=== PATIENT | female | born 1990 | race Caucasian/White ===

== ENCOUNTER 2016-08-01 18:28 | Emergency (ER) | payer OTHER ==
--- NOTE | 2016-08-01 19:30 | ED NURSING NOTES ---
Clinical Report - Nurses [facility] [address] [place] [address] 08/01/2016 18:29 Patient: HILDA MARTINEZ TRIAGE Triage time 18:38 Aug 01 2016. Acuity: LEVEL 3. Chief Complaint: BACK PAIN. MEAGHAN COMA SCORE: Meaghan Coma Scale: 15- eyes open spontaneously (4); best verbal response- oriented x 4 (5); best motor response- obeys commands (6). --18:55 Dang Guthrie R.N. 18:38 08/01/16. BP: 109/69. HR: 100. RR: 18. O2 saturation: 100%. Temp: 98.7 F. Pain level now 7/10. --18:55 Dang Guthrie R.N. Weight: 65.7 kg stated. Height/Length: 64 inches Per Patient. BMI: 24.9. --18:53 Dang Guthrie R.N. Medications None. --18:49 Dang Guthrie R.N. Allergies Sulfa Antibiotics. --18:49 Dang Guthrie R.N. History Arrived by private vehicle. Historian: patient. Accompanied by friend. Onset. (2 weeks). No history of recent trauma. ( Patient very vague with area of pain midback unable to palpate to create pain.). No numbness, weakness, tingling, trouble walking or fever. No extremity pain. 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 PAST MEDICAL HX: No history of diabetes mellitus, hypertension, heart disease or lung disease. Tetanus status: up-to-date. Last normal menstrual period- 8 months ago. 2. Para 2. Abortions 0. Sexual history - sexually active. No contraception. SOCIAL HX: Current every day light tobacco smoker (cigarette)- less than 1/2 a pack per day. Occasional alcohol use. History of drug use: marijuana. SELF HARM ASSESSMENT: A self harm assessment was performed. The patient answered "no" to the question "Have you recently felt down, depressed, or hopeless?" and "Do you have thoughts of harming or killing yourself?". FALL RISK ASSESSMENT: Fall risk assessment completed. No fall risk identified. NUTRITIONAL RISK ASSESSMENT: The nutritional risk assessment revealed no deficiencies. FUNCTIONAL ASSESSMENT: Functional assessment: no impairments noted. LEARNING NEEDS ASSESSMENT: The learning needs assessment revealed no barriers. ABUSE ASSESSMENT: Abuse assessment: (yes) The patient was asked "Do you feel safe in your home?". SKIN INTEGRITY ASSESSMENT: Skin integrity risk assessment completed. No skin integrity risk identified. --18:55 Dang Guthrie R.N. ( Patient said she has been having muscle spasms all over, migraines, and swelling of the face and extremities.). --18:56 Dang Guthrie R.N. PROBLEMS: Kidney infection . Menorrhagia. Fibromyalgia. --18:50 Dang Guthrie R.N. ADDITIONAL SURGERIES: no known surgeries. Interventions ID band on patient. --18:55 Dang Guthrie R.N. PHYSICAL ASSESSMENT Ambulatory to room. GENERAL / NEURO / PSYCH: Alert. Oriented X 4. Appears in no acute distress. RESPIRATORY: Respirations not labored. Chest nontender. Breath sounds within normal limits. CVS: Normal heart rate and rhythm. Capillary refill less than 2 seconds. GI / : Abdomen soft and nontender. Bowel sounds within normal limits. ( Last BM today). EXTREMITIES: Sensation intact in extremities. ROM of extremities within normal limits. BACK: Normal inspection of the neck and back. No neck or back tenderness. ROM of neck and back within normal limits. --18:56 Dang Guthrie R.N. NURSING PROGRESS NOTES The initial plan of care for this patient includes an assessment with efforts to address the patient's anxiety; patient positioning and appropriate ambient lighting; impairment of the neurological and musculoskeletal system. Head of bed elevated (45). Reassurance given. Call light placed in reach. Side rails up x 1. Bed placed in lowest position. Brakes of bed on. --18:57 Dang Guthrie R.N. 18:56 08/01/16. BP: 105/68. HR: 93. RR: 18. O2 saturation: 99%. --18:57 Dang Guthrie R.N. DISPOSITION / DISCHARGE Departure time: 1958. Condition at departure: improved. No learning barriers present. Discharge instructions provided and reviewed with the patient. Reviewed warnings. Reviewed medication(s). Treatments reviewed. Reviewed referrals. Activity restrictions reviewed. Patient and radial drill press set up operator verbalized understanding. Written instructions provided in Filipino. The patient was discharged by the physician histology assistant. She was discharged home and accompanied by radial drill press set up operator. She left the Emergency Department ambulatory and via private vehicle. Assurance Associate driving. FALL RISK ASSESSMENT: Fall risk assessment completed. No fall risk identified. --20:01 Alejandro Overton R.N. 19:59 08/01/16. BP: 108/68. HR: 88. RR: 18. O2 saturation: 98%. Temp: 98 F. Pain level now 0/10. --20:01 Alejandro Overton R.N. Locked/Released at 08/01/2016 20:01 by Alejandro Overton R.N.
--- NOTE | 2016-08-01 19:30 | ED NURSING NOTES ---
Clinical Report - Nurses [facility] [address] [place] [address] 08/01/2016 18:29 Patient: HILDA MARTINEZ TRIAGE Triage time 18:38 Aug 01 2016. Acuity: LEVEL 3. Chief Complaint: BACK PAIN. MEAGHAN COMA SCORE: Meaghan Coma Scale: 15- eyes open spontaneously (4); best verbal response- oriented x 4 (5); best motor response- obeys commands (6). --18:55 Dang Guthrie R.N. 18:38 08/01/16. BP: 109/69. HR: 100. RR: 18. O2 saturation: 100%. Temp: 98.7 F. Pain level now 7/10. --18:55 Dang Guthrie R.N. Weight: 65.7 kg stated. Height/Length: 64 inches Per Patient. BMI: 24.9. --18:53 Dang Guthrie R.N. Medications None. --18:49 Dang Guthrie R.N. Allergies Sulfa Antibiotics. --18:49 Dang Guthrie R.N. History Arrived by private vehicle. Historian: patient. Accompanied by friend. Onset. (2 weeks). No history of recent trauma. ( Patient very vague with area of pain midback unable to palpate to create pain.). No numbness, weakness, tingling, trouble walking or fever. No extremity pain. 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 PAST MEDICAL HX: No history of diabetes mellitus, hypertension, heart disease or lung disease. Tetanus status: up-to-date. Last normal menstrual period- 8 months ago. 2. Para 2. Abortions 0. Sexual history - sexually active. No contraception. SOCIAL HX: Current every day light tobacco smoker (cigarette)- less than 1/2 a pack per day. Occasional alcohol use. History of drug use: marijuana. SELF HARM ASSESSMENT: A self harm assessment was performed. The patient answered "no" to the question "Have you recently felt down, depressed, or hopeless?" and "Do you have thoughts of harming or killing yourself?". FALL RISK ASSESSMENT: Fall risk assessment completed. No fall risk identified. NUTRITIONAL RISK ASSESSMENT: The nutritional risk assessment revealed no deficiencies. FUNCTIONAL ASSESSMENT: Functional assessment: no impairments noted. LEARNING NEEDS ASSESSMENT: The learning needs assessment revealed no barriers. ABUSE ASSESSMENT: Abuse assessment: (yes) The patient was asked "Do you feel safe in your home?". SKIN INTEGRITY ASSESSMENT: Skin integrity risk assessment completed. No skin integrity risk identified. --18:55 Dang Guthrie R.N. ( Patient said she has been having muscle spasms all over, migraines, and swelling of the face and extremities.). --18:56 Dang Guthrie R.N. PROBLEMS: Kidney infection . Menorrhagia. Fibromyalgia. --18:50 Dang Guthrie R.N. ADDITIONAL SURGERIES: no known surgeries. Interventions ID band on patient. --18:55 Dang Guthrie R.N. PHYSICAL ASSESSMENT Ambulatory to room. GENERAL / NEURO / PSYCH: Alert. Oriented X 4. Appears in no acute distress. RESPIRATORY: Respirations not labored. Chest nontender. Breath sounds within normal limits. CVS: Normal heart rate and rhythm. Capillary refill less than 2 seconds. GI / : Abdomen soft and nontender. Bowel sounds within normal limits. ( Last BM today). EXTREMITIES: Sensation intact in extremities. ROM of extremities within normal limits. BACK: Normal inspection of the neck and back. No neck or back tenderness. ROM of neck and back within normal limits. --18:56 Dang Guthrie R.N. NURSING PROGRESS NOTES The initial plan of care for this patient includes an assessment with efforts to address the patient's anxiety; patient positioning and appropriate ambient lighting; impairment of the neurological and musculoskeletal system. Head of bed elevated (45). Reassurance given. Call light placed in reach. Side rails up x 1. Bed placed in lowest position. Brakes of bed on. --18:57 Dang Guthrie R.N. 18:56 08/01/16. BP: 105/68. HR: 93. RR: 18. O2 saturation: 99%. --18:57 Dang Guthrie R.N. DISPOSITION / DISCHARGE Departure time: 1958. Condition at departure: improved. No learning barriers present. Discharge instructions provided and reviewed with the patient. Reviewed warnings. Reviewed medication(s). Treatments reviewed. Reviewed referrals. Activity restrictions reviewed. Patient and automation lead verbalized understanding. Written instructions provided in Bruneian. The patient was discharged by the physician bindery library technical assistant. She was discharged home and accompanied by automation lead. She left the Emergency Department ambulatory and via private vehicle. Coremaker Supervisor driving. FALL RISK ASSESSMENT: Fall risk assessment completed. No fall risk identified. --20:01 Alejandro Overton R.N. 19:59 08/01/16. BP: 108/68. HR: 88. RR: 18. O2 saturation: 98%. Temp: 98 F. Pain level now 0/10. --20:01 Alejandro Overton R.N. Locked/Released at 08/01/2016 20:01 by Alejandro Overton R.N.
--- NOTE | 2016-08-01 19:30 | ED ORDER SUMMARY ---
..... Patient: HILDA MARTINEZ OrderSheet [facility] VisitID: [id number] [address] [place] [address] 25y, F Registration Date/Time: 08/01/2016 ORDER SHEET Weight: 65.7 kg (stated) Allergies: Sulfa Antibiotics GENERAL ORDERS: UA-Culture if indicated Urgent (18:49 08/01/2016 HBivens A.R.N.P.) (Ack 18:52 Amol) (19:07 Malathi R.N.) Urine Urgent (18:49 08/01/2016 HBivens A.R.N.P.) (Ack 18:52 RKleda) (19:07 Malathi R.N.) MEDICATION ORDERS: IV FLUIDS: ORDER SHEET NOTES: [Electronically signed by Alejandro Overton R.N. (20:01 08/01/2016)] [Electronically signed by Natividad ChaudhariR.N.P. (20:49 08/01/2016)] [Electronically locked/signed by Alejandro Overton R.N. (20:01 08/01/2016)]
--- NOTE | 2016-08-01 19:30 | ED ORDER SUMMARY ---
..... Patient: HILDA MARTINEZ OrderSheet [facility] VisitID: [id number] [address] [place] [address] 25y, F Registration Date/Time: 08/01/2016 ORDER SHEET Weight: 65.7 kg (stated) Allergies: Sulfa Antibiotics GENERAL ORDERS: UA-Culture if indicated Urgent (18:49 08/01/2016 HBivens A.R.N.P.) (Ack 18:52 Amol) (19:07 Malathi R.N.) Urine Urgent (18:49 08/01/2016 HBivens A.R.N.P.) (Ack 18:52 RKleda) (19:07 Malathi R.N.) MEDICATION ORDERS: IV FLUIDS: ORDER SHEET NOTES: [Electronically signed by Alejandro Overton R.N. (20:01 08/01/2016)] [Electronically signed by Natividad ChaudhariR.N.P. (20:49 08/01/2016)] [Electronically locked/signed by Alejandro Overton R.N. (20:01 08/01/2016)]
--- NOTE | 2016-08-01 19:30 | ED CLINICAL REPORT ---
Clinical Report - Physicians/Mid Levels [facility] [address] [address] 08/01/2016 18:29 Patient: HILDA MARTINEZ Time Seen: 1838; upon arrival, initial patient contact, initial documentation, patient care assumed. Arrived- By private vehicle. Historian- patient. HISTORY OF PRESENT ILLNESS Chief Complaint: BACK PAIN and CHRONIC BACK PAIN. It is still present. Modifying factors. Not worsened by anything. Not relieved by anything. It is described as being moderate in degree and in the area of the lower thoracic spine and upper lumbar spine. The quality is noted to be burning, "pain" and similar to prior episodes. No radiation. No bladder dysfunction, bowel dysfunction, sensory loss or motor loss. Additional history - back pain since she had her epidural years ago. Patient denies an injury but injury to the head or neck. No other injury. Similar symptoms previously: Occasionally, as bad. Recent medical care: Not recently seen/assessed. REVIEW OF SYSTEMS No fever, difficulty with urination, urinary frequency, hematuria or vaginal discharge. No difficulty breathing, chest pain, abdominal pain, vomiting or diarrhea. All systems otherwise negative, except as recorded above. PAST HISTORY See nurses notes. PROBLEMS: Kidney infection . Menorrhagia. Fibromyalgia. --18:50 Dang Guthrie, RHeather. ADDITIONAL SURGERIES: no known surgeries. SOCIAL HISTORY Light tobacco smoker. Occasional alcohol use. History of occasional drug use: marijuana. No recent travel. Is a local resident. FAMILY HISTORY Negative. ADDITIONAL NOTES The nursing notes have been reviewed with agreement regarding the chief complaint, HPI, ROS, PMH and patient medications and allergies. PHYSICAL EXAM Vital Signs: 08/01/2016 18:38 BP: 109/69. HR: 100. RR: 18. O2 saturation: 100%. Temp: 98.7 F. Have been reviewed as normal and appear to be correct. Appearance: Alert. No acute distress. Neck: Normal inspection. Neck nontender. Painless ROM. CVS: Heart sounds normal. Pulses normal. Respiratory: No respiratory distress. Breath sounds normal. Abdomen: No visible injury. Soft and nontender. Back: Normal inspection. No tenderness. Painless ROM. Skin: Skin warm and dry. Normal skin color. No rash. Normal skin turgor. Extremities: Extremities exhibit normal ROM. Extremities nontender. Neuro: Oriented X 3. Mood/affect normal. No motor deficit. No sensory deficit. LABS, X-RAYS, AND EKG Laboratory Tests: UA-Culture if indicated: (KATHLEEN: 08/01/2016 16:40) ( [facility] [place]/01[place] 19:09) Final results Test Result Flag Units (Reference) URINE COLOR STRAW URINE APPEARANCE CLEAR URINE GLUCOSE NEGATIVE (NEGATIVE) URINE BILIRUBIN NEGATIVE (NEGATIVE) URINE KETONE NEGATIVE (NEGATIVE) URINE SPECIFIC GRAVITY <= 1.005 L (1.010-1.030) URINE PH 5.5 (5.0-8.0) URINE PROTEIN NEGATIVE (NEGATIVE) URINE UROBILINOGEN 0.2 EU/dL (0.2-1.0) URINE NITRITE NEGATIVE (NEGATIVE) URINE BLOOD 1+ (NEGATIVE) URINE LEUK ESTERASE NEGATIVE (NEGATIVE) URINE RBC 0-1 rbc/hpf (0-1) URINE WBC NONE SEEN wbc/hpf (0-1) URINE EPITHELIAL CELLS 0-1 EPI/hpf (0-5) URINE BACTERIA NONE SEEN (NONE SEEN) URINE COMMENT CULT NOT INDICATED URINE CULTURES ARE SET-UP BASED ON THE FOLLOWING CRITERIA:POSITIVE NITRITEPOSITIVE LEUKOCYTE ESTERASEGREATER THAN 10 WHITE BLOOD CELLSMODERATE (2+) OR GREATER BACTERIA Urine: (KATHLEEN: 08/01/2016 16:40) ( [facility] 08/01/2016 18:58) Final results Test Result Flag Units (Reference) URINE NEGATIVE . PROGRESS AND PROCEDURES Patient counseled in person regarding the patient's stable condition, test results and diagnosis. 19:30. Differential Diagnosis: I considered Musculo-skeletal strain, contusion, transverse-process fracture, osteoarthritis and pyelonephritis as a possible cause of back pain in this patient. This is a partial list of diagnoses considered. (uti, kidney stone). Above considerations are based on history, physical exam and laboratory data. Differential diagnosis was discussed with patient. Disposition: Discharged home in good and unchanged condition (19:30). Condition: good and stable. CLINICAL IMPRESSION Chronic nontraumatic thoracic and lumbar back pain. No radiculopathy, sciatica or neurological deficit. INSTRUCTIONS Warnings: GENERAL WARNINGS: Return or contact your physician immediately if your condition worsens or changes unexpectedly, if not improving as expected, or if other problems arise. SPECIFICALLY, return if you develop numbness or incontinence of feces (loss of bowel control) or urine (loss of bladder control). chest pain, trouble breathing. Prescription Medications: Flexeril 10 mg: Take 1 orally every 8 hours as needed for muscle spasm. Dispense twenty (20). No refills. Substitution is permissible. Ultram 50 mg tablets: take 1-2 orally every 6 hours as needed for pain. Dispense twenty (20). No refills. Substitution is permissible. Follow-up: Follow up with your doctor in about one week as needed. Call for an appointment. Summary of care provided to patient. Understanding of the discharge instructions verbalized by patient. (Electronically signed by Natividad Chaudhari A.R.N.P. 08/01/2016 20:49)
--- NOTE | 2016-08-01 19:30 | ED CLINICAL REPORT ---
Clinical Report - Physicians/Mid Levels [facility] [address] [address] 08/01/2016 18:29 Patient: HILDA MARTINEZ Time Seen: 1838; upon arrival, initial patient contact, initial documentation, patient care assumed. Arrived- By private vehicle. Historian- patient. HISTORY OF PRESENT ILLNESS Chief Complaint: BACK PAIN and CHRONIC BACK PAIN. It is still present. Modifying factors. Not worsened by anything. Not relieved by anything. It is described as being moderate in degree and in the area of the lower thoracic spine and upper lumbar spine. The quality is noted to be burning, "pain" and similar to prior episodes. No radiation. No bladder dysfunction, bowel dysfunction, sensory loss or motor loss. Additional history - back pain since she had her epidural years ago. Patient denies an injury but injury to the head or neck. No other injury. Similar symptoms previously: Occasionally, as bad. Recent medical care: Not recently seen/assessed. REVIEW OF SYSTEMS No fever, difficulty with urination, urinary frequency, hematuria or vaginal discharge. No difficulty breathing, chest pain, abdominal pain, vomiting or diarrhea. All systems otherwise negative, except as recorded above. PAST HISTORY See nurses notes. PROBLEMS: Kidney infection . Menorrhagia. Fibromyalgia. --18:50 Dang Guthrie, RHeather. ADDITIONAL SURGERIES: no known surgeries. SOCIAL HISTORY Light tobacco smoker. Occasional alcohol use. History of occasional drug use: marijuana. No recent travel. Is a local resident. FAMILY HISTORY Negative. ADDITIONAL NOTES The nursing notes have been reviewed with agreement regarding the chief complaint, HPI, ROS, PMH and patient medications and allergies. PHYSICAL EXAM Vital Signs: 08/01/2016 18:38 BP: 109/69. HR: 100. RR: 18. O2 saturation: 100%. Temp: 98.7 F. Have been reviewed as normal and appear to be correct. Appearance: Alert. No acute distress. Neck: Normal inspection. Neck nontender. Painless ROM. CVS: Heart sounds normal. Pulses normal. Respiratory: No respiratory distress. Breath sounds normal. Abdomen: No visible injury. Soft and nontender. Back: Normal inspection. No tenderness. Painless ROM. Skin: Skin warm and dry. Normal skin color. No rash. Normal skin turgor. Extremities: Extremities exhibit normal ROM. Extremities nontender. Neuro: Oriented X 3. Mood/affect normal. No motor deficit. No sensory deficit. LABS, X-RAYS, AND EKG Laboratory Tests: UA-Culture if indicated: (KATHLEEN: 08/01/2016 16:40) ( [facility] [place] 08/01/2016 19:09) Final results Test Result Flag Units (Reference) URINE COLOR STRAW URINE APPEARANCE CLEAR URINE GLUCOSE NEGATIVE (NEGATIVE) URINE BILIRUBIN NEGATIVE (NEGATIVE) URINE KETONE NEGATIVE (NEGATIVE) URINE SPECIFIC GRAVITY <= 1.005 L (1.010-1.030) URINE PH 5.5 (5.0-8.0) URINE PROTEIN NEGATIVE (NEGATIVE) URINE UROBILINOGEN 0.2 EU/dL (0.2-1.0) URINE NITRITE NEGATIVE (NEGATIVE) URINE BLOOD 1+ (NEGATIVE) URINE LEUK ESTERASE NEGATIVE (NEGATIVE) URINE RBC 0-1 rbc/hpf (0-1) URINE WBC NONE SEEN wbc/hpf (0-1) URINE EPITHELIAL CELLS 0-1 EPI/hpf (0-5) URINE BACTERIA NONE SEEN (NONE SEEN) URINE COMMENT CULT NOT INDICATED URINE CULTURES ARE SET-UP BASED ON THE FOLLOWING CRITERIA:POSITIVE NITRITEPOSITIVE LEUKOCYTE ESTERASEGREATER THAN 10 WHITE BLOOD CELLSMODERATE (2+) OR GREATER BACTERIA Urine: (KATHLEEN: 08/01/2016 16:40) ( [facility] [place] 08/01/2016 18:58) Final results Test Result Flag Units (Reference) URINE NEGATIVE . PROGRESS AND PROCEDURES Patient counseled in person regarding the patient's stable condition, test results and diagnosis. 19:30. Differential Diagnosis: I considered Musculo-skeletal strain, contusion, transverse-process fracture, osteoarthritis and pyelonephritis as a possible cause of back pain in this patient. This is a partial list of diagnoses considered. (uti, kidney stone). Above considerations are based on history, physical exam and laboratory data. Differential diagnosis was discussed with patient. Disposition: Discharged home in good and unchanged condition (19:30). Condition: good and stable. CLINICAL IMPRESSION Chronic nontraumatic thoracic and lumbar back pain. No radiculopathy, sciatica or neurological deficit. INSTRUCTIONS Warnings: GENERAL WARNINGS: Return or contact your physician immediately if your condition worsens or changes unexpectedly, if not improving as expected, or if other problems arise. SPECIFICALLY, return if you develop numbness or incontinence of feces (loss of bowel control) or urine (loss of bladder control). chest pain, trouble breathing. Prescription Medications: Flexeril 10 mg: Take 1 orally every 8 hours as needed for muscle spasm. Dispense twenty (20). No refills. Substitution is permissible. Ultram 50 mg tablets: take 1-2 orally every 6 hours as needed for pain. Dispense twenty (20). No refills. Substitution is permissible. Follow-up: Follow up with your doctor in about one week as needed. Call for an appointment. Summary of care provided to patient. Understanding of the discharge instructions verbalized by patient. (Electronically signed by Natividad Chaudhari A.R.N.P. 08/01/2016 20:49)
--- NOTE | 2016-08-01 20:49 | ED DISCHARGE INSTRUCTIONS ---
Patient: HILDA MARTINEZ General Instructions [facility] VisitID: [id number] [address] [address] 25y, F Registration Date/Time: 08/01/2016 Chronic nontraumatic thoracic and lumbar back pain. No radiculopathy, sciatica or neurological deficit. INSTRUCTIONS Warnings: GENERAL WARNINGS: Return or contact your physician immediately if your condition worsens or changes unexpectedly, if not improving as expected, or if other problems arise. SPECIFICALLY, return if you develop numbness or incontinence of feces (loss of bowel control) or urine (loss of bladder control). chest pain, trouble breathing. Prescription Medications: Flexeril 10 mg: Take 1 orally every 8 hours as needed for muscle spasm. Dispense twenty (20). No refills. Substitution is permissible. Ultram 50 mg tablets: take 1-2 orally every 6 hours as needed for pain. Dispense twenty (20). No refills. Substitution is permissible. Follow-up: Follow up with your doctor in about one week as needed. Call for an appointment. Summary of care provided to patient. Understanding of the discharge instructions verbalized by patient. ADDITIONAL INFORMATION Back Pain [Acute Or Chronic] Back pain is usually caused by an injury to the muscles or ligaments of the spine. Sometimes the disks that separate each bone in the spine may bulge and cause pain by pressing on a nearby nerve. Back pain may also appear after a sudden twisting/bending force (such as in a car accident), after a simple awkward movement, or lifting something heavy with poor body positioning. In either case, muscle spasm is often present and adds to the pain. Acute back pain usually gets better in one to two weeks. Back pain related to disk disease, arthritis in the spinal joints or spinal stenosis (narrowing of the spinal canal) can become chronic and last for months or years. Unless you had a physical injury (for example, a car accident or fall) X-rays are usually not ordered for the initial evaluation of back pain. If pain continues and does not respond to medical treatment, x-rays and other tests may be performed at a later time. Home Care: You may need to stay in bed the first few days. But, as soon as possible, begin sitting or walking to avoid problems with prolonged bed rest (muscle weakness, worsening back stiffness and pain, blood clots in the legs). When in bed, try to find a position of comfort. A firm mattress is best. Try lying flat on your back with pillows under your knees. You can also try lying on your side with your knees bent up towards your chest and a pillow between your knees. Avoid prolonged sitting. This puts more stress on the lower back than standing or walking. During the first two days after injury, apply an ICE PACK to the painful area for 20 minutes every 2-4 hours. This will reduce swelling and pain. HEAT (hot shower, hot bath or heating pad) works well for muscle spasm. You can start with ice, then switch to heat after two days. Some patients feel best alternating ice and heat treatments. Use the one method that feels the best to you. You may use acetaminophen (Tylenol) or ibuprofen (Motrin, Advil) to control pain, unless another pain medicine was prescribed. [NOTE: If you have chronic liver or kidney disease or ever had a stomach ulcer or GI bleeding, talk with your doctor before using these medicines.] Be aware of safe lifting methods and do not lift anything over 15 pounds until all the pain is gone. Follow Up with your doctor or this facility if your symptoms do not start to improve after one week. Physical therapy may be needed. [NOTE: If X-rays were taken, they will be reviewed by a radiologist. You will be notified of any new findings that may affect your care.] Get Prompt Medical Attention if any of the following occur: Pain becomes worse or spreads to your legs Weakness or numbness in one or both legs Loss of bowel or bladder control Numbness in the groin or genital area Cyclobenzaprine Hydrochloride Oral tablet What is this medicine? CYCLOBENZAPRINE (heather gruber SANDOR jena preen) is a muscle relaxer. It is used to treat muscle pain, spasms, and stiffness. How should I use this medicine? Take this medicine by mouth with a glass of water. Follow the directions on the prescription label. If this medicine upsets your stomach, take it with food or milk. Take your medicine at regular intervals. Do not take it more often than directed. Talk to your it business process architect regarding the use of this medicine in children. Special care may be needed. What side effects may I notice from receiving this medicine? Side effects that you should report to your doctor or health career transition specialist as soon as possible: allergic reactions like skin rash, itching or hives, swelling of the face, lips, or tongue chest pain fast heartbeat hallucinations seizures vomiting Side effects that usually do not require medical attention (report to your doctor or health career transition specialist if they continue or are bothersome): headache What may interact with this medicine? Do not take this medicine with any of the following medications: cisapride droperidol flecainide grepafloxacin halofantrine levomethadyl MAOIs like Carbex, Eldepryl, Marplan, Nardil, and Parnate nilotinib pimozide probucol sertindole This medicine may also interact with the following medications: abarelix alcohol contrast dyes dolasetron guanethidine medicines for cancer medicines for depression, anxiety, or psychotic disturbances medicines to treat an irregular heartbeat medicines used for sleep or numbness during surgery or procedure methadone octreotide ondansetron palonosetron phenothiazines like chlorpromazine, mesoridazine, prochlorperazine, thioridazine some medicines for infection like alfuzosin, chloroquine, clarithromycin, levofloxacin, mefloquine, pentamidine, troleandomycin tramadol vardenafil What if I miss a dose? If you miss a dose, take it as soon as you can. If it is almost time for your next dose, take only that dose. Do not take double or extra doses. Where should I keep my medicine? Keep out of the reach of children. Store at room temperature between 15 and 30 degrees C (59 and 86 degrees F). Keep container tightly closed. Throw away any unused medicine after the expiration date. What should I tell my health care provider before I take this medicine? They need to know if you have any of these conditions: heart disease, irregular heartbeat, or previous heart attack liver disease thyroid problem an unusual or allergic reaction to cyclobenzaprine, tricyclic antidepressants, lactose, other medicines, foods, dyes, or preservatives or trying to get breast-feeding What should I watch for while using this medicine? Check with your doctor or health career transition specialist if your condition does not improve within 1 to 3 weeks. You may get drowsy or dizzy when you first start taking the medicine or change doses. Do not drive, use machinery, or do anything that may be dangerous until you know how the medicine affects you. Stand or sit up slowly. Your mouth may get dry. Drinking water, chewing sugarless gum, or sucking on hard candy may help. Tramadol Hydrochloride Oral tablet What is this medicine? TRAMADOL (TRA ma dole) is a pain reliever. It is used to treat moderate to severe pain in adults. How should I use this medicine? Take this medicine by mouth with a full glass of water. Follow the directions on the prescription label. If the medicine upsets your stomach, take it with food or milk. Do not take more medicine than you are told to take. Talk to your it business process architect regarding the use of this medicine in children. Special care may be needed. What side effects may I notice from receiving this medicine? Side effects that you should report to your doctor or health career transition specialist as soon as possible: allergic reactions like skin rash, itching or hives, swelling of the face, lips, or tongue breathing difficulties, wheezing confusion itching light headedness or fainting spells redness, blistering, peeling or loosening of the skin, including inside the mouth seizures Side effects that usually do not require medical attention (report to your doctor or health career transition specialist if they continue or are bothersome): constipation dizziness drowsiness headache nausea, vomiting What may interact with this medicine? Do not take this medicine with any of the following medications: MAOIs like Carbex, Eldepryl, Marplan, Nardil, and Parnate This medicine may also interact with the following medications: alcohol or medicines that contain alcohol antihistamines benzodiazepines bupropion carbamazepine or oxcarbazepine clozapine cyclobenzaprine digoxin furazolidone linezolid medicines for depression, anxiety, or psychotic disturbances medicines for migraine headache like almotriptan, eletriptan, frovatriptan, naratriptan, rizatriptan, sumatriptan, zolmitriptan medicines for pain like pentazocine, buprenorphine, butorphanol, meperidine, nalbuphine, and propoxyphene medicines for sleep muscle relaxants naltrexone phenobarbital phenothiazines like perphenazine, thioridazine, chlorpromazine, mesoridazine, fluphenazine, prochlorperazine, promazine, and trifluoperazine procarbazine warfarin What if I miss a dose? If you miss a dose, take it as soon as you can. If it is almost time for your next dose, take only that dose. Do not take double or extra doses. Where should I keep my medicine? Keep out of the reach of children. Store at room temperature between 15 and 30 degrees C (59 and 86 degrees F). Keep container tightly closed. Throw away any unused medicine after the expiration date. What should I tell my health care provider before I take this medicine? They need to know if you have any of these conditions: brain tumor depression drug abuse or addiction head injury if you frequently drink alcohol containing drinks kidney disease or trouble passing urine liver disease lung disease, asthma, or breathing problems seizures or epilepsy suicidal thoughts, plans, or attempt; a previous suicide attempt by you or a family member an unusual or allergic reaction to tramadol, codeine, other medicines, foods, dyes, or preservatives or trying to get breast-feeding What should I watch for while using this medicine? Tell your doctor or health career transition specialist if your pain does not go away, if it gets worse, or if you have new or a different type of pain. You may develop tolerance to the medicine. Tolerance means that you will need a higher dose of the medicine for pain relief. Tolerance is normal and is expected if you take this medicine for a long time. Do not suddenly stop taking your medicine because you may develop a severe reaction. Your body becomes used to the medicine. This does NOT mean you are addicted. Addiction is a behavior related to getting and using a drug for a non-medical reason. If you have pain, you have a medical reason to take pain medicine. Your doctor will tell you how much medicine to take. If your doctor wants you to stop the medicine, the dose will be slowly lowered over time to avoid any side effects. You may get drowsy or dizzy. Do not drive, use machinery, or do anything that needs mental alertness until you know how this medicine affects you. Do not stand or sit up quickly, especially if you are an older patient. This reduces the risk of dizzy or fainting spells. Alcohol can increase or decrease the effects of this medicine. Avoid alcoholic drinks. You may have constipation. Try to have a bowel movement at least every 2 to 3 days. If you do not have a bowel movement for 3 days, call your doctor or health career transition specialist. Your mouth may get dry. Chewing sugarless gum or sucking hard candy, and drinking plenty of water may help. Contact your doctor if the problem does not go away or is severe. You have been given the following additional information: Back Pain (Acute Or Chronic) Cyclobenzaprine Hydrochloride Oral tablet Tramadol Hydrochloride Oral tablet (Electronically signed by Natividad Chaudhari A.R.N.P. 08/01/2016 20:49)
--- NOTE | 2016-08-01 20:49 | ED MAR SUMMARY ---
..... Medication Administration Record [facility] [address] [place], [place] [id number] Patient: HILDA MARTINEZ Visit ID: [id number] 25y, F Weight: 65.7 kg Height/Length: 64 in BMI: 24.9 ALLERGIES: Sulfa Antibiotics
--- NOTE | 2016-08-01 20:49 | ED MAR SUMMARY ---
..... Medication Administration Record [facility] [address] [place], [place] [id number] Patient: HILDA MARTINEZ Visit ID: [id number] 25y, F Weight: 65.7 kg Height/Length: 64 in BMI: 24.9 ALLERGIES: Sulfa Antibiotics
--- NOTE | 2016-08-01 20:49 | ED MED RECONCILIATION SUMMARY ---
Patient: HILDA MARTINEZ Medication Reconciliation Report [facility] VisitID: [id number] [address] [place] [address] 25y, F Registration Date/Time: 08/01/2016 Weight: 65.7 kg Height/Length: 64 in. BMI: 24.9 ALLERGIES: Sulfa Antibiotics The patient's Home Medications are listed below: NONE. The source(s) of the original Home Medication information: Not obtained. The following Medications were given to the patient in the Emergency Department: None. The following Medications were prescribed to the patient: Flexeril 10 mg: Take 1 orally every 8 hours as needed for muscle spasm. Dispense twenty (20). No refills. Substitution is permissible. -- Natividad Chaudhari A.R.N.P. Ultram 50 mg tablets: take 1-2 orally every 6 hours as needed for pain. Dispense twenty (20). No refills. Substitution is permissible. -- Natividad Chaudhari A.R.N.P.
--- NOTE | 2016-08-01 20:49 | ED MED RECONCILIATION SUMMARY ---
Patient: HILDA MARTINEZ Medication Reconciliation Report [facility] VisitID: [id number] [address] [place] [address] 25y, F Registration Date/Time: 08/01/2016 Weight: 65.7 kg Height/Length: 64 in. BMI: 24.9 ALLERGIES: Sulfa Antibiotics The patient's Home Medications are listed below: NONE. The source(s) of the original Home Medication information: Not obtained. The following Medications were given to the patient in the Emergency Department: None. The following Medications were prescribed to the patient: Flexeril 10 mg: Take 1 orally every 8 hours as needed for muscle spasm. Dispense twenty (20). No refills. Substitution is permissible. -- Natividad Chaudhari A.R.N.P. Ultram 50 mg tablets: take 1-2 orally every 6 hours as needed for pain. Dispense twenty (20). No refills. Substitution is permissible. -- Natividad Chaudhari A.R.N.P.
== END 2016-08-01 19:58 | disposition home or self-care (01) ==
LOC: ED SRH 18:28
DX: G89.29 Other chronic pain (principal); M54.5 Low back pain; M54.6 Pain in thoracic spine; F17.210 Nicotine dependence, cigarettes, uncomplicated; Z88.2 Allergy status to sulfonamides
CPT/HCPCS: 90004; 93070

== ENCOUNTER 2016-11-15 23:17 | Emergency (ER) | payer OTHER ==
--- NOTE | 2016-11-16 01:33 | ED CLINICAL REPORT ---
Clinical Report - Physicians/Mid Levels [facility] [address] [place] [address] 11/15/2016 23:19 Patient: HILDA MARTINEZ Time Seen: 23:32; initial patient contact. Arrived- By private vehicle. Historian- patient. HISTORY OF PRESENT ILLNESS Chief Complaint: ABDOMINAL PAIN. At its maximum, severity described as moderate. When seen in the E.D., severity described as moderate. Modifying factors. Not worsened by anything. Not relieved by anything. It is described as "pain". No radiation. It is described as located in the right flank and the right upper quadrant and right abdomen. This started today. The patient has had nausea. No vomiting or diarrhea. Similar symptoms previously: None. Recent medical care: Not recently seen/assessed. REVIEW OF SYSTEMS The patient has had constipation. No difficulty with urination, pain with urination, fever, chest pain or chills. Last bowel movement: 5 days ago. All systems otherwise negative, except as recorded above. PAST HISTORY Back Pain. Kidney infection . Menorrhagia. Fibromyalgia. SOCIAL HISTORY Current every day smoker. Occasional alcohol use. History of drug use: marijuana. ADDITIONAL NOTES The nursing notes have been reviewed. PHYSICAL EXAM Vital Signs: 11/15/2016 23:26 BP: 128/84. HR: 115. RR: 18. O2 saturation: 100%. Temp: 98.3 F. Pain level now: 8/10. Have been reviewed. Blood pressure normal. Tachycardic. Respiratory rate normal. Temperature normal. Oxygen saturation normal. Appearance: Alert. Oriented X3. No acute distress. Eyes: Eyes normal inspection. ENT: Pharynx normal. CVS: Tachycardia. Heart sounds normal. Rhythm normal. Respiratory: No respiratory distress. Breath sounds normal. Abdomen: Soft. Mild tenderness diffusely. No guarding, rebound tenderness or Russell's sign present. Bowel sounds normal. No organomegaly. No mass. Back: Normal inspection. No CVA tenderness. Skin: Skin warm and dry. Normal skin color. No rash. Extremities: No lower extremity edema. Neuro: Oriented X 3. LABS, X-RAYS, AND EKG Abdominal CT: Normal kidneys. Uterus normal. Bladder normal. Appendix normal. No mass. No free fluid. No diverticulitis. Moderate stool. Study type: renal stone evaluation. Abdominal CT performed without contrast. Prior studies were not available for comparison. The study was interpreted by the radiologist and discussed with the radiologist. Laboratory Tests: CBC w Diff: (KATHLEEN: 11/16/2016 00:20) ( [facility] 11/16/2016 00:51) Final results Test Result Flag Units (Reference) WHITE BLOOD COUNT 8.1 K/uL (4.5-11.5) RED BLOOD COUNT 3.76 L M/uL (4.00-5.20) HEMOGLOBIN 11.9 L gm/dL (12.0-16.0) HEMATOCRIT 34.8 L % (36.0-46.0) MEAN CELL VOLUME 93 fL (80-100) MEAN CORPUSCULAR HGB 32 pg (26-34) MEAN CORPUSCULAR HGB CONC 34 g/dL (31-37) RED CELL DISTRIBUTION WIDTH 12.1 % (11.6-14.8) PLATELET COUNT 215 K/uL (150-400) NEUTROPHIL % 73.5 % (50-75) LYMPH % 16.5 L % (25-40) MONO % 9.3 % (3-14) EOSINOPHIL % 0.4 % (0-4) BASOPHIL % 0.3 % (0-2) CMP: (KATHLEEN: 11/16/2016 00:20) ( [facility] 11/16/2016 00:59) Final results Test Result Flag Units (Reference) GLUCOSE 125 H mg/dL (70-110) BUN 8 mg/dL (7-18) CREATININE 0.7 mg/dL (0.6-1.3) Estimated GFR >60 mL/min Estimated GFR- >60 mL/min Note: Persistent reduction over 3 months in eGFR<60 mL/min/1.73 m2 defines CKD. Patients with eGFR values>=60 mL/min/1.73 m2 may also have CKD if evidence ofpersistent proteinuria. Additional information may be foundat www.kidney.org. SODIUM 137 mmol/L (136-145) POTASSIUM 3.5 mmol/L (3.5-5.1) CHLORIDE 99 mmol/L (98-107) CARBON DIOXIDE 32 mmol/L (21-32) CALCIUM 8.5 mg/dL (8.5-10.1) TOTAL PROTEIN 6.7 g/dL (6.4-8.2) ALBUMIN 3.3 g/dL (3.3-5.0) BILIRUBIN, TOTAL 0.4 mg/dL (0.0-1.0) ALKALINE PHOSPHATASE 65 U/L (46-116) AST (SGOT) 16 U/L (15-37) ALT (SGPT) 20 U/L (12-78) LIPASE 78 U/L (73-393) AMYLASE 23 L U/L (25-115) UA-Culture if indicated: (KATHLEEN: 11/15/2016 23:38) ( MsgRcvd 11/16/2016 00:06) Final results Test Result Flag Units (Reference) URINE COLOR YELLOW URINE APPEARANCE TURBID URINE GLUCOSE NEGATIVE (NEGATIVE) URINE BILIRUBIN NEGATIVE (NEGATIVE) URINE KETONE NEGATIVE (NEGATIVE) URINE SPECIFIC GRAVITY 1.010 (1.010-1.030) URINE PH 6.5 (5.0-8.0) URINE PROTEIN 1+ (NEGATIVE) URINE UROBILINOGEN 1.0 EU/dL (0.2-1.0) URINE NITRITE POSITIVE (NEGATIVE) URINE BLOOD 3+ (NEGATIVE) URINE LEUK ESTERASE POSITIVE (NEGATIVE) URINE RBC 50-75 rbc/hpf (0-1) URINE WBC 15-25 wbc/hpf (0-1) URINE EPITHELIAL CELLS 0-1 EPI/hpf (0-5) URINE BACTERIA FEW (1+) (NONE SEEN) URINE COMMENT CULTURE INDICATED URINE CULTURES ARE SET-UP BASED ON THE FOLLOWING CRITERIA:POSITIVE NITRITEPOSITIVE LEUKOCYTE ESTERASEGREATER THAN 10 WHITE BLOOD CELLSMODERATE (2+) OR GREATER BACTERIA Urine: (KATHLEEN: 11/15/2016 23:38) ( MsgRcvd 11/15/2016 23:57) Final results Test Result Flag Units (Reference) URINE NEGATIVE . PROGRESS AND PROCEDURES Disposition: Discharged home in good condition. Condition: good. CLINICAL IMPRESSION Constipation INSTRUCTIONS Drink plenty of fluids. Your Current Medications: CONTINUE TAKING THE FOLLOWING MEDICATIONS: None*. Prescription Medications: Miralax: take 1 package mixed in 8 ounces juice every day as needed for constipation. Dispense one (1) twelve pack. No refills. Substitution is permissible. Follow-up: Follow up with your doctor in about three days. Call for an appointment. Screening today revealed the patient's blood pressure to be in the normal range. (Electronically signed by Sai Rutherford Dr. 11/17/2016 7:47)
--- NOTE | 2016-11-16 01:34 | ED ORDER SUMMARY ---
..... Patient: HILDA MARTINEZ OrderSheet [facility] VisitID: [id number] [address] [place] [address] 26y, F Registration Date/Time: 11/15/2016 ORDER SHEET Weight: 63.5 kg (stated) Allergies: Sulfa Antibiotics GENERAL ORDERS: Urine Urgent (23:43 11/15/2016 HSoule per protocol) (23:48 AMcQuoid ER Tech1) UA-Culture if indicated Urgent (23:43 11/15/2016 HSoule per protocol) (23:48 AMcQuoid ER Tech1) CBC w Diff Urgent (00:11/16/2016 Issa Templeton) (Ack 0:10 AMcQuoid ER Tech1) (0:27 JSanders R.N.) CMP Urgent (00:11/16/2016 Issa Templeton) (Ack 0:10 AMcQuoid ER Tech1) (0:27 JSanders R.N.) Amylase Urgent (00:11/16/2016 Issa Templeton) (Ack 0:10 AMcQuoid ER Tech1) (0:27 JSanders R.N.) Lipase Urgent (00:11/16/2016 Issa Templeton) (Ack 0:10 AMcQuoid ER Tech1) (0:27 JSanders R.N.) CT Abd/Pel wo Cont (Right side) Urgent (00:37 11/16/2016 Issa Templeton) (Ack 0:49 AMcQuoid ER Tech1) (1:02 Kailash) MEDICATION ORDERS: IV FLUIDS: IV NS : initial bolus none -, then 1000 mL/hr for X1 (NOW) (00:11/16/2016 Issa Templeton) (Ack 0:12 JSanders R.N.) (0:27 JSanders R.N.) Zofran IV 4 mg (NOW) (00:11/16/2016 Issa Templeton) (Ack 0:12 JSanders R.N.) (0:27 JSanders R.N.) Demerol IV 25 mg (HIGH ALERT MEDICATION, NOW) (00:11/16/2016 Issa Templeton) (Ack 0:12 JSanders R.N.) (0:31 JSanders R.N.) ORDER SHEET NOTES: [Electronically signed by Angela Yusuf R.N. (01:53 11/16/2016)] [Electronically signed by Sai Rutherford Dr. (07:47 11/17/2016)] [Electronically locked/signed by Angela Yusuf R.N. (01:53 11/16/2016)]
--- NOTE | 2016-11-16 01:34 | ED NURSING NOTES ---
Clinical Report - Nurses [facility] [address] [place] [address] 11/15/2016 23:19 Patient: HILDA MARTINEZ TRIAGE Triage time 23:25 Nov 15 2016. Acuity: LEVEL 3. Chief Complaint: (Smelly urination, right flank pain, blood noticed in urine, pain radiates to RUQ and down right leg). 23:36 11/15/16. SEPSIS SCREEN: Sepsis Screen. Negative (no infection suspected/documented). ANAM COMA SCORE: [place] Coma Scale: 15- eyes open spontaneously (4); best verbal response- oriented x 4 (5); best motor response- obeys commands (6). --23:36 Angela Yusuf R.N. 23:26 11/15/16. BP: 128/84 (regular adult cuff) taken on the left arm, while sitting. HR: 115. RR: 18. O2 saturation: 100% on room air. Temp: 98.3 F (oral). Pain level now: 01/23. --23:36 Angela Yusuf R.N. Weight: 63.5 kg stated. Height/Length: 63 inches Per Patient. BMI: 24.8. --23:32 Angela Yusuf R.N. Medications None. --23:26 Angela Yusuf R.N. Allergies Sulfa Antibiotics. --23:26 Angela Yusuf R.N. History Arrived by private vehicle. Historian: patient. Accompanied by friend. Primary physician (RICHY GOODRICH). Onset. (started 3 days ago). She has had mild abdominal pain. The pain is described as located in the RUQ. She has had moderate, constant right-sided flank pain with nausea. 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 PAST MEDICAL HX: Last normal menstrual period was 4 weeks ago- weeks ago. SOCIAL HX: Current every day light tobacco smoker (cigarette)- less than 1/2 a pack per day. Occasional alcohol use. History of occasional drug use: marijuana. Recently used drugs yesterday. No infectious disease exposure. ABUSE ASSESSMENT: No report of abuse. SELF HARM ASSESSMENT: A self harm assessment was performed. (No thoughts of harming self or others). --23:36 Angela Yusuf R.N. PROBLEMS: Back Pain. Kidney infection . Menorrhagia. Fibromyalgia. --23:26 Angela Yusuf R.N. ADDITIONAL SURGERIES: no known surgeries. Interventions ID band on patient. To treatment room. --23:36 Angela Yusuf R.N. PHYSICAL ASSESSMENT 23:37 11/15/16. Ambulatory to room. Patient gowned. GENERAL / NEURO / PSYCH: Alert. Oriented X 4. Appears in no acute distress. HEENT: Mucous membranes are pink. RESPIRATORY: Respirations not labored. CVS: Normal heart rate and rhythm. Capillary refill less than 2 seconds. GI / : Abdomen soft. Abdominal tenderness in the right upper quadrant. Guarding present in the right upper quadrant. Bowel sounds within normal limits. No vaginal bleeding. No vaginal discharge. SKIN: Skin is warm. --23:37 Angela Yusuf R.N. NURSING PROGRESS NOTES 23:37 11/15/16. The plan of care for this patient has been created. Patient gowned. Head of bed elevated. Reassurance given. Two patient identifiers checked. Call light placed in reach. Side rails up x 1. Bed placed in lowest position. Brakes of bed on. Patient ready for evaluation- chart flagged and ED physician notified. --23:37 Angela Yusuf R.N. 00:22 11/16/2016 Site #1 started via IV in the right antecubital space with an 20g angiocath, with aseptic technique and good blood return; one attempt. Blood drawn: rainbow set. Labeled in the presence of the patient and sent to the lab. Saline lock flushed with 10 mL saline. --00:27 Angela Yusuf R.N. 00:27 11/16/2016 Started bag #1 1000 mL IV Fluids IV NS (Saline); at 1000 mL/hr over 1 hour(s) via site #1 via dial-a-flow. Allergies verified and confirmed 5 rights. IV patency established. IV site checked: no pain, redness, or swelling. IV flushed thoroughly pre- and post-medication administration. --00:27 Angela Yusuf R.N. 00:27 11/16/2016 Zofran (Ondansetron HCl) IVP 4 mg given over 1 minute(s) via site #1. Allergies verified and confirmed 5 rights. IV patency established. IV site checked: no pain, redness, or swelling. IV flushed thoroughly pre- and post-medication administration. IVP given by RN. --00:27 Angela Yusuf R.N. 00:28 11/16/16. BP: 115/73 (regular adult cuff) taken on the left arm, while sitting. HR: 95. RR: 16. O2 saturation: 99% on room air. Pain level now: 11/23. --00:28 Angela Yusuf R.N. ( Patient boyfriend not at bedside anymore. Patient is sleepy, easily aroused when spoken to). --00:29 Angela Yusuf R.N. 00:31 11/16/2016 Demerol (Meperidine HCl) IVP 25 mg given over 2 minute(s) via site #1. Allergies verified and confirmed 5 rights. IV patency established. IV site checked: no pain, redness, or swelling. IV flushed thoroughly pre- and post-medication administration. IVP given by RN. --00:31 Angela Yusuf R.N. 00:32 11/16/16. ( Lights turned out for patient comfort, patient continues on monitor due to medications, call light within reach, both side rails up.). --00:33 Angela Yusuf R.N. 01:02 11/16/16. BP: 107/68 (regular adult cuff) taken on the left arm. HR: 98. RR: 16. O2 saturation: 98% on room air. Pain level now: 10/23. --01:06 Angela Yusuf R.N. ( Patient informed, test was negative, informed her she does have a kidney stone on right side and we are waiting on more imaging, patient states her understanding). --01:06 Angela Yusuf R.N. 01:40 11/16/2016 IV Fluids IV NS Discontinued: bag #1 completed. Total amount infused: 1000 mL. IV patency established. IV site checked: no pain, redness, or swelling. IV flushed thoroughly. --01:50 Angela Yusuf R.N. 01:15 11/16/16. BP: 107/65 (regular adult cuff) taken on the left arm, while sitting. HR: 88. RR: 16. O2 saturation: 97% on room air. --01:52 Angela Yusuf R.N. 01:30 11/16/16. BP: 113/68. HR: 93. RR: 16. O2 saturation: 98% on room air. --01:52 Angela Yusuf R.N. 01:42 11/16/2016 Site #1 removed upon discharge. Bandaid applied. --01:52 Angela Yusuf R.N. DISPOSITION / DISCHARGE Departure time: 01:50 Nov 16 2016. Condition at departure: improved. No learning barriers present. Discharge instructions provided and reviewed with the patient. Reviewed medication(s) side effects, precautions, dosing and course information (Miralax). Patient verbalized understanding. Written instructions provided in Mongolian. The patient was discharged by the physician. She was discharged home and accompanied by bunch maker. She left the Emergency Department ambulatory and via private vehicle. Ride Operator driving. --01:50 Angela Yusuf R.N. 01:43 11/16/16. BP: 113/68 (regular adult cuff) taken on the left arm. HR: 90. RR: 16. O2 saturation: 100% on room air. Temp: 98.2 F (oral). Pain level now: 11/23. --01:50 Angela Yusuf R.N. Locked/Released at 11/16/2016 1:53 by Angela Yusuf R.N.
--- NOTE | 2016-11-16 01:34 | ED NURSING NOTES ---
Clinical Report - Nurses [facility] [address] [place] [address] 11/15/2016 23:19 Patient: HILDA MARTINEZ TRIAGE Triage time 23:25 Nov 15 2016. Acuity: LEVEL 3. Chief Complaint: (Smelly urination, right flank pain, blood noticed in urine, pain radiates to RUQ and down right leg). 23:36 11/15/16. SEPSIS SCREEN: Sepsis Screen. Negative (no infection suspected/documented). ANAM COMA SCORE: [place] Coma Scale: 15- eyes open spontaneously (4); best verbal response- oriented x 4 (5); best motor response- obeys commands (6). --23:36 Angela Yusuf R.N. 23:26 11/15/16. BP: 128/84 (regular adult cuff) taken on the left arm, while sitting. HR: 115. RR: 18. O2 saturation: 100% on room air. Temp: 98.3 F (oral). Pain level now: 01/23. --23:36 Angela Yusuf R.N. Weight: 63.5 kg stated. Height/Length: 63 inches Per Patient. BMI: 24.8. --23:32 Angela Yusuf R.N. Medications None. --23:26 Angela Yusuf R.N. Allergies Sulfa Antibiotics. --23:26 Angela Yusuf R.N. History Arrived by private vehicle. Historian: patient. Accompanied by friend. Primary physician (RICHY GOODRICH). Onset. (started 3 days ago). She has had mild abdominal pain. The pain is described as located in the RUQ. She has had moderate, constant right-sided flank pain with nausea. 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 PAST MEDICAL HX: Last normal menstrual period was 4 weeks ago- weeks ago. SOCIAL HX: Current every day light tobacco smoker (cigarette)- less than 1/2 a pack per day. Occasional alcohol use. History of occasional drug use: marijuana. Recently used drugs yesterday. No infectious disease exposure. ABUSE ASSESSMENT: No report of abuse. SELF HARM ASSESSMENT: A self harm assessment was performed. (No thoughts of harming self or others). --23:36 Angela Yusuf R.N. PROBLEMS: Back Pain. Kidney infection . Menorrhagia. Fibromyalgia. --23:26 Angela Yusuf R.N. ADDITIONAL SURGERIES: no known surgeries. Interventions ID band on patient. To treatment room. --23:36 Angela Yusuf R.N. PHYSICAL ASSESSMENT 23:37 11/15/16. Ambulatory to room. Patient gowned. GENERAL / NEURO / PSYCH: Alert. Oriented X 4. Appears in no acute distress. HEENT: Mucous membranes are pink. RESPIRATORY: Respirations not labored. CVS: Normal heart rate and rhythm. Capillary refill less than 2 seconds. GI / : Abdomen soft. Abdominal tenderness in the right upper quadrant. Guarding present in the right upper quadrant. Bowel sounds within normal limits. No vaginal bleeding. No vaginal discharge. SKIN: Skin is warm. --23:37 Angela Yusuf R.N. NURSING PROGRESS NOTES 23:37 11/15/16. The plan of care for this patient has been created. Patient gowned. Head of bed elevated. Reassurance given. Two patient identifiers checked. Call light placed in reach. Side rails up x 1. Bed placed in lowest position. Brakes of bed on. Patient ready for evaluation- chart flagged and ED physician notified. --23:37 Angela Yusuf R.N. 00:22 11/16/2016 Site #1 started via IV in the right antecubital space with an 20g angiocath, with aseptic technique and good blood return; one attempt. Blood drawn: rainbow set. Labeled in the presence of the patient and sent to the lab. Saline lock flushed with 10 mL saline. --00:27 Angela Yusuf R.N. 00:27 11/16/2016 Started bag #1 1000 mL IV Fluids IV NS (Saline); at 1000 mL/hr over 1 hour(s) via site #1 via dial-a-flow. Allergies verified and confirmed 5 rights. IV patency established. IV site checked: no pain, redness, or swelling. IV flushed thoroughly pre- and post-medication administration. --00:27 Angela Yusuf R.N. 00:27 11/16/2016 Zofran (Ondansetron HCl) IVP 4 mg given over 1 minute(s) via site #1. Allergies verified and confirmed 5 rights. IV patency established. IV site checked: no pain, redness, or swelling. IV flushed thoroughly pre- and post-medication administration. IVP given by RN. --00:27 Angela Yusuf R.N. 00:28 11/16/16. BP: 115/73 (regular adult cuff) taken on the left arm, while sitting. HR: 95. RR: 16. O2 saturation: 99% on room air. Pain level now: 11/23. --00:28 Angela Yusuf R.N. ( Patient boyfriend not at bedside anymore. Patient is sleepy, easily aroused when spoken to). --00:29 Angela Yusuf R.N. 00:31 11/16/2016 Demerol (Meperidine HCl) IVP 25 mg given over 2 minute(s) via site #1. Allergies verified and confirmed 5 rights. IV patency established. IV site checked: no pain, redness, or swelling. IV flushed thoroughly pre- and post-medication administration. IVP given by RN. --00:31 Angela Yusuf R.N. 00:32 11/16/16. ( Lights turned out for patient comfort, patient continues on monitor due to medications, call light within reach, both side rails up.). --00:33 Angela Yusuf R.N. 01:02 11/16/16. BP: 107/68 (regular adult cuff) taken on the left arm. HR: 98. RR: 16. O2 saturation: 98% on room air. Pain level now: 10/23. --01:06 Angela Yusuf R.N. ( Patient informed, test was negative, informed her she does have a kidney stone on right side and we are waiting on more imaging, patient states her understanding). --01:06 Angela Yusuf R.N. 01:40 11/16/2016 IV Fluids IV NS Discontinued: bag #1 completed. Total amount infused: 1000 mL. IV patency established. IV site checked: no pain, redness, or swelling. IV flushed thoroughly. --01:50 Angela Yusuf R.N. 01:15 11/16/16. BP: 107/65 (regular adult cuff) taken on the left arm, while sitting. HR: 88. RR: 16. O2 saturation: 97% on room air. --01:52 Angela Yusuf R.N. 01:30 11/16/16. BP: 113/68. HR: 93. RR: 16. O2 saturation: 98% on room air. --01:52 Angela Yusuf R.N. 01:42 11/16/2016 Site #1 removed upon discharge. Bandaid applied. --01:52 Angela Yusuf R.N. DISPOSITION / DISCHARGE Departure time: 01:50 Nov 16 2016. Condition at departure: improved. No learning barriers present. Discharge instructions provided and reviewed with the patient. Reviewed medication(s) side effects, precautions, dosing and course information (Miralax). Patient verbalized understanding. Written instructions provided in Persian. The patient was discharged by the physician. She was discharged home and accompanied by human resources mgr. She left the Emergency Department ambulatory and via private vehicle. Labor Relations Consultant driving. --01:50 Angela Yusuf R.N. 01:43 11/16/16. BP: 113/68 (regular adult cuff) taken on the left arm. HR: 90. RR: 16. O2 saturation: 100% on room air. Temp: 98.2 F (oral). Pain level now: 11/23. --01:50 Angela Yusuf R.N. Locked/Released at 11/16/2016 1:53 by Angela Yusuf R.N.
--- NOTE | 2016-11-16 01:34 | ED ORDER SUMMARY ---
..... Patient: HILDA MARTINEZ OrderSheet [facility] VisitID: [id number] [address] [address] 26y, F Registration Date/Time: 11/15/2016 ORDER SHEET Weight: 63.5 kg (stated) Allergies: Sulfa Antibiotics GENERAL ORDERS: Urine Urgent (23:43 11/15/2016 HSoule per protocol) (23:48 AMcQuoid ER Tech1) UA-Culture if indicated Urgent (23:43 11/15/2016 HSoule per protocol) (23:48 AMcQuoid ER Tech1) CBC w Diff Urgent (00:11/16/2016 Issa Templeton) (Ack 0:10 AMcQuoid ER Tech1) (0:27 JSanders R.N.) CMP Urgent (00:11/16/2016 Issa Templeton) (Ack 0:10 AMcQuoid ER Tech1) (0:27 JSanders R.N.) Amylase Urgent (00:11/16/2016 Issa Templeton) (Ack 0:10 AMcQuoid ER Tech1) (0:27 JSanders R.N.) Lipase Urgent (00:11/16/2016 Issa Templeton) (Ack 0:10 AMcQuoid ER Tech1) (0:27 JSanders R.N.) CT Abd/Pel wo Cont (Right side) Urgent (00:37 11/16/2016 Issa Templeton) (Ack 0:49 AMcQuoid ER Tech1) (1:02 Kailash) MEDICATION ORDERS: IV FLUIDS: IV NS : initial bolus none -, then 1000 mL/hr for X1 (NOW) (00:11/16/2016 Issa Templeton) (Ack 0:12 JSanders R.N.) (0:27 JSanders R.N.) Zofran IV 4 mg (NOW) (00:11/16/2016 Issa Templeton) (Ack 0:12 JSanders R.N.) (0:27 JSanders R.N.) Demerol IV 25 mg (HIGH ALERT MEDICATION, NOW) (00:11/16/2016 Issa Templeton) (Ack 0:12 JSanders R.N.) (0:31 JSanders R.N.) ORDER SHEET NOTES: [Electronically signed by Angela Yusuf R.N. (01:53 11/16/2016)] [Electronically signed by Sai Rutherford Dr. (07:47 11/17/2016)] [Electronically locked/signed by Angela Yusuf R.N. (01:53 11/16/2016)]
--- NOTE | 2016-11-16 08:10 | DIAGNOSTIC IMAGING REPORT ---
PROCEDURE: CT ABDOMEN/PELVIS W/O CONTRAST INDICATION: Right flank pain. TECHNIQUE: Noncontrast axial images were obtained of the entire abdomen and pelvis with sagittal and coronal reformations. COMPARISON: None. FINDINGS: ABDOMEN: No evidence of urinary calculi. Mild right hydronephrosis h.s. recent passage of a calculus. Lung base are clear. Heart size is normal. Liver, gallbladder, pancreas, spleen and adrenal glands are normal. Normal abdominal aorta. Stool throughout the large bowel. PELVIS: Normal appendix. Uterus, adnexa and bladder are normal. No inflammatory changes or free fluid. Bones are unremarkable. IMPRESSION: 1. Mild right hydronephrosis without evidence of urinary calculi. This may be due to a recently passed calculus. 2. Obstipation 3. Preliminary results submitted by Dr. Newby, [facility] radiology. All CT scans at this facility use dose modulation, iterative reconstruction, and/or weight-based dosing when appropriate to reduce radiation dose to as low as reasonably achievable.
--- NOTE | 2016-11-17 07:47 | ED MED RECONCILIATION SUMMARY ---
Patient: HILDA MARTINEZ Medication Reconciliation Report [facility] VisitID: [id number] [address] [place] [address] 26y, F Registration Date/Time: 11/15/2016 Weight: 63.5 kg Height/Length: 63 in. BMI: 24.8 ALLERGIES: Sulfa Antibiotics The patient's Home Medications are listed below: NONE. The source(s) of the original Home Medication information: Not obtained. The following Medications were given to the patient in the Emergency Department: IV NS IV Fluids bolus 0, then 1000 mL/hr, administered: 11/16/2016 12:27:00 AM Zofran [IVP] IVP 4 mg, administered: 11/16/2016 12:27:00 AM Demerol [IVP] IVP 25 mg, administered: 11/16/2016 12:31:00 AM The following Medications were prescribed to the patient: Miralax: take 1 package mixed in 8 ounces juice every day as needed for constipation. Dispense one (1) twelve pack. No refills. Substitution is permissible. -- Sai Rutherford Dr.
--- NOTE | 2016-11-17 07:47 | ED MED RECONCILIATION SUMMARY ---
Patient: HILDA MARTINEZ Medication Reconciliation Report [facility] VisitID: [id number] [address] [place] [address] 26y, F Registration Date/Time: 11/15/2016 Weight: 63.5 kg Height/Length: 63 in. BMI: 24.8 ALLERGIES: Sulfa Antibiotics The patient's Home Medications are listed below: NONE. The source(s) of the original Home Medication information: Not obtained. The following Medications were given to the patient in the Emergency Department: IV NS IV Fluids bolus 0, then 1000 mL/hr, administered: 11/16/2016 12:27:00 AM Zofran [IVP] IVP 4 mg, administered: 11/16/2016 12:27:00 AM Demerol [IVP] IVP 25 mg, administered: 11/16/2016 12:31:00 AM The following Medications were prescribed to the patient: Miralax: take 1 package mixed in 8 ounces juice every day as needed for constipation. Dispense one (1) twelve pack. No refills. Substitution is permissible. -- Sai Rutherford Dr.
--- NOTE | 2016-11-17 07:47 | ED MAR SUMMARY ---
..... Medication Administration Record [facility] [address] [place] [address] Patient: HILDA MARTINEZ Visit ID: [id number] 26y, F Weight: 63.5 kg Height/Length: 63 in BMI: 24.8 ALLERGIES: Sulfa Antibiotics Start 00:27 11/16/2016 Angela Yusuf R.N., Stop 01:40 11/16/2016 Angela Yusuf R.N. Medication Administered: IV NS (SALINE), Dose: IV Fluids over 1 hour(s), Rate: 1000 mL/hr, Dispensed: 1000 mL bag, Site: #1 right AC. Medication Ordered: IV NS : initial bolus none -, then 1000 mL/hr for X1 (NOW). Given 00:27 11/16/2016 Angela Yusuf R.N. Medication Administered: ZOFRAN [IVP] (ONDANSETRON HCL), Dose: 4 mg IVP over 1 minute(s), Site: #1 right AC. Medication Ordered: Zofran IV 4 mg (NOW). Given 00:11/16/2016 Angela Yusuf R.N. Medication Administered: DEMEROL [IVP] (MEPERIDINE HCL), Dose: 25 mg IVP over 2 minute(s), Site: #1 right AC. Medication Ordered: Demerol IV 25 mg (HIGH ALERT MEDICATION, NOW).
--- NOTE | 2016-11-17 07:47 | ED MAR SUMMARY ---
..... Medication Administration Record [facility] [address] [place] [address] Patient: HILDA MARTINEZ Visit ID: [id number] 26y, F Weight: 63.5 kg Height/Length: 63 in BMI: 24.8 ALLERGIES: Sulfa Antibiotics Start 00:27 11/16/2016 Angela Yusuf R.N., Stop 01:40 11/16/2016 Angela Yusuf R.N. Medication Administered: IV NS (SALINE), Dose: IV Fluids over 1 hour(s), Rate: 1000 mL/hr, Dispensed: 1000 mL bag, Site: #1 right AC. Medication Ordered: IV NS : initial bolus none -, then 1000 mL/hr for X1 (NOW). Given 00:27 11/16/2016 Angela Yusuf R.N. Medication Administered: ZOFRAN [IVP] (ONDANSETRON HCL), Dose: 4 mg IVP over 1 minute(s), Site: #1 right AC. Medication Ordered: Zofran IV 4 mg (NOW). Given 00:11/16/2016 Angela Yusuf R.N. Medication Administered: DEMEROL [IVP] (MEPERIDINE HCL), Dose: 25 mg IVP over 2 minute(s), Site: #1 right AC. Medication Ordered: Demerol IV 25 mg (HIGH ALERT MEDICATION, NOW).
--- NOTE | 2016-11-17 07:47 | ED DISCHARGE INSTRUCTIONS ---
Patient: HILDA MARTINEZ General Instructions [facility] VisitID: [id number] [place] [address] 26y, F Registration Date/Time: 11/15/2016 Constipation INSTRUCTIONS Drink plenty of fluids. Your Current Medications: CONTINUE TAKING THE FOLLOWING MEDICATIONS: None*. Prescription Medications: Miralax: take 1 package mixed in 8 ounces juice every day as needed for constipation. Dispense one (1) twelve pack. No refills. Substitution is permissible. Follow-up: Follow up with your doctor in about three days. Call for an appointment. Screening today revealed the patient's blood pressure to be in the normal range. ADDITIONAL INFORMATION Constipation (Adult) Constipation is bowel movements that are less frequent than usual. Stools often become very hard and difficult to pass. This may lead to abdominal pain and bloating. It may also cause painful bowel movements. Constipation may be due to a diet thats low in fiber. Some medications, especially pain medications, can also cause it. Constipation may be treated with enemas, suppositories, laxatives or stool softeners. Your doctor will advise you which will work best for you. Follow the advice below to help avoid this problem in the future. Home Care Medication: Take any medicines as directed. Some laxatives are safe only for occasional use. Others can be taken on a regular basis. Talk to your doctor or pharmacist if you have questions. General Care: Prescription pain medications can cause constipation. If you are prescribed pain medications, ask the doctor whether you should also take a stool softener. A diet high in fiber with plenty of fluids helps to maintain regular, soft bowel movements. The following foods are good sources of dietary fiber: Cereals and breads: Whole grain cereal with bran, oatmeal, rolled oats, whole grain breads Fruits: All fruits (fresh and dried), raisins, prunes, apricots, berries, figs Vegetables: Any fresh vegetables, especially peas, broccoli, brussels sprouts, winter squash, green beans, cauliflower, sherman beans, carrots Other: Popcorn, brown rice Drink plenty of water when you increase the amount of fiber you eat. Follow Up with your doctor or return to this facility if symptoms do not improve in the next few days. You may require further tests or a referral to a specialist. Get Prompt Medical Attention if any of the following occur: Fever over 100.4F (38C) Failure to resume normal bowel movements Increasing abdominal or back pain Nausea or vomiting Abdominal swelling Blood in the stool Weakness, dizziness or fainting Unexpected vaginal bleeding High Fiber Diet Fiber is present in all fruits, vegetables, cereals and grains. Fiber passes through the body undigested. A high fiber diet helps food move through the intestinal tract. The added bulk is helpful in preventing constipation. In people with diverticulosis it serves to clean out the pouches along the colon wall while preventing new ones from forming. A high fiber diet also reduces the risk of colon cancer, decreases blood cholesterol and prevents high blood sugar in people with diabetes. The foods listed below are high in fiber and should be included in your diet. If you are not used to high fiber foods, start with 1 or 2 foods from this list. Every 3-4 days add a new one to your diet until you are eating 4 high fiber foods per day. This should give you 20-35 Gm of fiber/day. It is also important to drink a lot of water when you are on this diet (6-8 glasses a day). Water causes the fiber to swell and increases the benefit. Foods High In Dietary Fiber: BREADS: Made with 100% whole wheat flour; kiel, wheat or rye crackers; tortillas, bran muffins CEREALS: Whole grain cereal with bran (Chex, Raisin Bran, [place] Bran), oatmeal, rolled oats, granola, wheat flakes, brown rice NUTS: Any nuts FRUITS: All fresh fruits along with edible skins, (bananas, citrus fruit, mangoes, pears, prunes, raisins, apples, pineapple, apricot, melon, jams and marmalades), fruit juices (especially prune juice) VEGETABLES: All types, preferably raw or lightly cooked: especially, celery, eggplant, potatoes,spinach, broccoli, brussel sprouts, winter squash, carrots, cauliflower, soybeans, lentils, fresh and dried beans of all kinds OTHER: Popcorn, any spices You have been given the following additional information: Constipation (Adult) Diet, High Fiber (Electronically signed by Sai Rutherford Dr. 11/17/2016 7:47)
== END 2016-11-16 01:50 | disposition home or self-care (01) ==
LOC: ED SRH 23:17
DX: K59.00 Constipation, unspecified (principal); N39.0 Urinary tract infection, site not specified; F17.210 Nicotine dependence, cigarettes, uncomplicated; F12.10 Cannabis abuse, uncomplicated
CPT/HCPCS: 90004; 90100; 90148; 90469; 92235; 92530; 93070; 95059